=== PATIENT | female | born 1950 | race African-American/Black ===

== ENCOUNTER 2017-04-20 19:09 | Emergency (ER) | payer MEDICARE ==
[~2017-04-20] VITALS: Ht 170.2 cm; Wt 91.0 kg
[~2017-04-20 19:09] MED LIST: ACET-2178 PO; AMLO2.5T45 PO; ASPI-518 PO; BENAZEPRIL PO; SIMVASTATIN PO; VITAMIN D PO
[2017-04-20 19:45] VITALS: BP 158/85
== END 2017-04-21 | disposition left against medical advice (07) ==
LOC: ER 19:09
DX: M79.605 Pain in left leg (principal); Z53.21 Procedure and treatment not carried out due to patient leaving prior to being seen by health care provider

== ENCOUNTER 2017-04-22 14:32 | Emergency (ER) | payer MEDICARE ==
[~2017-04-22] VITALS: Ht 170.2 cm; Wt 91.0 kg
[2017-04-22 14:54] VITALS: BP 131/75
== END 2017-04-22 22:05 | disposition left against medical advice (07) ==
LOC: ER 21:40
DX: R25.2 Cramp and spasm (principal); R51 Headache; R11.0 Nausea; Z53.21 Procedure and treatment not carried out due to patient leaving prior to being seen by health care provider
CPT/HCPCS: 93005

== ENCOUNTER 2019-10-26 14:33 | Emergency (ER) | payer MEDICARE ==
[~2019-10-26] VITALS: Ht 170.2 cm; Wt 91.6 kg
[~2019-10-26 14:33] MED LIST changes: -ACET-2178 PO; +TOPUD PO
[2019-10-26 17:52] VITALS: BP 138/73
== END 2019-10-26 18:39 | disposition left against medical advice (07) ==
LOC: ER 14:33
DX: Z53.21 Procedure and treatment not carried out due to patient leaving prior to being seen by health care provider (principal)

== ENCOUNTER 2020-05-26 12:57 | Emergency (ER) | payer BC, MEDICARE ==
[~2020-05-26] VITALS: Ht 170.2 cm; Wt 89.0 kg
[2020-05-26] MEDS ORDERED: SODIUM CHLORIDE 0.9% 1,000 ML IV ONE (14:31)
[2020-05-26] MEDS ORDERED: MORPHINE SULFATE 4 MG/ML CPJ (NOT FOR IM USE) IV STA (14:31)
[2020-05-26] MEDS ORDERED: ONDANSETRON HCL 4MG/2ML INJ IV STA (14:31)
[2020-05-26 14:38] LABS: CLARITY URINE CLEAR (CLEAR); COLOR URINE YELLOW (YELLOW); KETONES URINE NEGATIVE (NEGATIVE); LEUKOCYTE ESTERASE URINE 1+ (NEGATIVE); NITRITE URINE NEGATIVE (NEGATIVE); OCCULT BLOOD URINE NEGATIVE (NEGATIVE); PROTEIN URINE NEGATIVE (NEGATIVE); SPECIFIC GRAVITY URINE 1.011 (1.005-1.030); UROBILINOGEN URINE 0.2 E.U./dL (0.2-1.0)
[2020-05-26 14:39] LABS: BASOPHILS % 1.3 % (0.0-2.0); EOSINOPHILS % 1.1 % (0.0-5.0); HEMATOCRIT. 39.8 % (36.0-48.0); LYMPHOCYTES % 32.7 % (20.0-50.0); MEAN CORPUSCULAR HEMOGLOBIN 28.9 pg (28.0-32.0); MEAN CORPUSCULAR VOLUME 88.4 fL (81.0-99.0); MEAN PLATELET VOLUME 7.7 fl (7.4-10.4); MONOCYTES % 6.5 % (2.0-8.0); NEUTROPHILS % 58.4 % (40.0-76.0); PLATELET 285 x1000/uL (130-400)
[2020-05-26 14:46] LABS: CHLORIDE 105 mEq/L (98-107); PROTHROMBIN TIME 10.8 sec (9.6-11.0)
[2020-05-26] MEDS ORDERED: NITROFURANTOIN 100MG M/M CAPSULE PO ONE (17:00)
[2020-05-26 17:35] VITALS: BP 156/88
== END 2020-05-26 17:35 | disposition home or self-care (01) ==
LOC: ER 13:08
DX: N39.0 Urinary tract infection, site not specified (principal); K57.90 Diverticulosis of intestine, part unspecified, without perforation or abscess without bleeding; I11.9 Hypertensive heart disease without heart failure; Z88.2 Allergy status to sulfonamides; Z88.6 Allergy status to analgesic agent; Z88.8 Allergy status to other drugs, medicaments and biological substances; Z95.0 Presence of cardiac pacemaker; Z90.49 Acquired absence of other specified parts of digestive tract; Z90.710 Acquired absence of both cervix and uterus; Z98.890 Other specified postprocedural states
CPT/HCPCS: 36415; 70450; 74176; 80053; 81003; 83690; 85025; 85610; 93005; 96361; 96374; 99285; J2270; J2405; J7030